=== PATIENT | female | born 1995 | race Caucasian/White ===

== ENCOUNTER → 2016-06-25 | Outpatient (CLI) | payer OTHER ==
[~2016-06-25] MED LIST: ALBUAER2 INH; FERR1TAB13 PO; PRENTAB26 PO
[2016-06-25 12:26] LABS: HEMATOCRIT 31.6 % (37-47)
[2016-06-25 14:13] LABS: URINE APPEARANCE CLOUDY (CLEAR); URINE BILIRUBIN NEG (NEG); URINE COLOR DK YELLOW; URINE EPITHELIAL CELL AUTO >30 /lpf (0-5); URINE NITRITE NEG (NEG); URINE PH 6.5 (4.5-7.5); URINE SPECIFIC GRAVITY 1.024 (1.000-1.030); UROBILINOGEN NEG (NEG)
[2016-06-25 14:17] LABS: MANUAL MICROSCOPIC REQUIRED? NO; REVIEW REQ? NO
== END | disposition home or self-care (01) ==
LOC: C.LAB1850 10:44
PROVIDERS: ATTEND Obstetrics & Gynecology
DX: Z34.83 Encounter for supervision of other normal pregnancy, third trimester (principal)

== ENCOUNTER 2016-06-27 15:27 | Outpatient (CLI) | payer OTHER ==
[~2016-06-27] VITALS: Ht 167.6 cm; Wt 80.0 kg
[~2016-06-27 15:27] MED LIST changes: -FERR1TAB13 PO
[2016-06-27 16:56] VITALS: Ht 167.6 cm; Wt 80.0 kg
== END 2016-06-27 17:14 | disposition home or self-care (01) ==
LOC: EEVIPCON 15:27 → C.OPB 15:27 → C.LD 15:27 → C.OPB 17:14
PROVIDERS: ATTEND Obstetrics & Gynecology
DX: O23.43 Unspecified infection of urinary tract in pregnancy, third trimester (principal); N39.0 Urinary tract infection, site not specified; Z3A.28 28 weeks gestation of pregnancy

== ENCOUNTER → 2016-07-23 | Outpatient (CLI) | payer OTHER ==
[~2016-07-23] MED LIST changes: -ALBUAER2 INH; +FERR1TAB13 PO
== END | disposition home or self-care (01) ==
LOC: C.LABSPEC 13:32
PROVIDERS: ATTEND Obstetrics & Gynecology
DX: N39.0 Urinary tract infection, site not specified (principal)

== ENCOUNTER 2016-08-09 22:55 | Outpatient (CLI) | payer OTHER ==
[~2016-08-09] VITALS: Ht 167.6 cm; Wt 76.0 kg
[~2016-08-09 22:55] MED LIST changes: -FERR1TAB13 PO
[2016-08-09 23:23] VITALS: Ht 167.6 cm; Wt 76.0 kg
--- NOTE | 2016-08-13 08:17 | EDITING REQUIRED CODING QUERY ---
DIAGNOSIS NEEDED To promote full compliance with coding requirements relating to patient care, physician participation is requested in all cases of mattress and foundation sewer uncertainty. Please assist us with the question(s) below: Coding Question: The patient received care in labor and delivery on 08/09/16 as noted within the record. Please document the diagnosis that is being addressed by the medication/treatment. Provider Response: DIAGNOSIS: Leakage of amniotic fluid, suspected Thank you for your assistance, Jannette Rangel - Engine Repairer
== END 2016-08-09 23:38 | disposition home or self-care (01) ==
LOC: C.LD 22:55 → C.OPB 22:55
PROVIDERS: ATTEND Obstetrics & Gynecology
DX: Z34.83 Encounter for supervision of other normal pregnancy, third trimester (principal); Z3A.34 34 weeks gestation of pregnancy

== ENCOUNTER → 2016-08-21 | Outpatient (CLI) | payer OTHER ==
[~2016-08-21] MED LIST changes: +FERR1TAB13 PO
== END | disposition home or self-care (01) ==
LOC: C.LABSPEC 13:29
PROVIDERS: ATTEND Obstetrics & Gynecology
DX: O24.410 Gestational diabetes mellitus in pregnancy, diet controlled (principal)

== ENCOUNTER 2016-08-30 19:14 | Outpatient (CLI) | payer OTHER ==
[~2016-08-30] VITALS: Ht 167.6 cm; Wt 79.0 kg
[~2016-08-30 19:14] MED LIST changes: -FERR1TAB13 PO
[2016-08-30 20:36] VITALS: Ht 167.6 cm; Wt 79.0 kg
--- NOTE | 2016-09-05 12:27 | EDITING REQUIRED CODING QUERY ---
DIAGNOSIS NEEDED To promote full compliance with coding requirements relating to patient care, physician participation is requested in all cases of photographer portrait uncertainty. Please assist us with the question(s) below: Coding Question: The patient received care in labor and delivery on 08/30/16 as noted within the record. Please document the diagnosis that is being addressed by the medication/treatment. Provider Response: DIAGNOSIS: Irregular uterine contractions at term Thank you for your assistance, Jannette Rangel - Fitter Welder
== END 2016-08-30 21:32 | disposition home or self-care (01) ==
LOC: C.OPB 19:14 → C.LD 19:15 → C.OPB 21:32
PROVIDERS: ATTEND Obstetrics & Gynecology
DX: O62.9 Abnormality of forces of labor, unspecified (principal); Z3A.38 38 weeks gestation of pregnancy

== ENCOUNTER 2016-09-02 12:41 | Outpatient (CLI) | payer OTHER | END 2016-09-02 13:30 | disposition home or self-care (01) | LOC: C.LD 12:41 → C.OPB 12:41 | PROVIDERS: ATTEND Obstetrics & Gynecology | DX: O26.893 Other specified pregnancy related conditions, third trimester (principal); O24.410 Gestational diabetes mellitus in pregnancy, diet controlled; R10.9 Unspecified abdominal pain; Z3A.38 38 weeks gestation of pregnancy ==

== ENCOUNTER 2016-09-04 03:36 | Inpatient (IN) | payer OTHER ==
[~2016-09-04] VITALS: Ht 167.6 cm; Wt 80.0 kg
[2016-09-04] MEDS ORDERED: NURSING VERBAL MED ORDER ONE (04:15)
[2016-09-04 04:18] VITALS: Ht 167.6 cm; Wt 80.0 kg
[2016-09-04] MEDS ORDERED: LACTATED RINGER'S 1000ML 1,000 ML IV PRN (04:30)
[2016-09-04] MEDS ORDERED: LACTATED RINGER'S 1000ML 1,000 ML IV SCH (04:30)
[2016-09-04] MEDS ORDERED: EpHEDrine SULFATE INJ 50 MG/ML AMP ONE (04:35)
[2016-09-04] MEDS ORDERED: FENTANYL 2MCG/ML ROPIV 1.25MG/ML 100ML BAG EPI ONE (04:35)
[2016-09-04] MEDS ORDERED: BUPIVACAINE 0.25% 30 ML VIAL ONE (04:35)
[2016-09-04 04:36] LABS: HEMATOCRIT 29.5 % (37-47); MEAN CELL VOLUME 80.4 fL (80-100); MEAN CORPUSCULAR HEMOGLOBIN 25.3 pg (25-34); PLATELET COUNT 142 K/uL (130-400); RED BLOOD COUNT 3.67 M/uL (4.2-5.4); WHITE BLOOD COUNT 10.12 K/uL (4.8-10.8)
[2016-09-04] MEDS ORDERED: FENTANYL CITRATE INJ 50 MCG/1 ML 2 ML VIAL ONE (04:36)
[2016-09-04 04:48] LABS: MEAN CORPUSCULAR HGB CONC 31.5 g/dl (32-36)
[2016-09-04] MEDS ORDERED: LACTATED RINGER'S 1000ML 500 ML IV PRN (05:24)
[2016-09-04] MEDS ORDERED: NALOXONE HCL INJ 1 MG in SODIUM CHLORIDE 0.9% 1000ML 1,000 ML IV PRN (05:24)
[2016-09-04] MEDS ORDERED: DiphenhydrAMINE HCL 50 MG/ML VIAL IV PRN (05:30)
[2016-09-04] MEDS ORDERED: NALOXONE HCL INJ 0.4 MG/1 ML VIAL/CARP IV PRN (05:30)
[2016-09-04] MEDS ORDERED: EpHEDrine SULFATE INJ 50 MG/ML AMP IV PRN (05:30)
[2016-09-04] MEDS ORDERED: NALBUPHINE HCL INJ 10 MG/ML AMP IV PRN (05:30)
[2016-09-04] MEDS ORDERED: ONDANSETRON INJ 2 MG/ML 2 ML VIAL IV PRN (05:30)
[2016-09-04] MEDS: FENTANYL 2MCG/ML ROPIV 1.25MG/ML 100ML BAG EPI PRN ×2 (05:47→07:07)
[2016-09-04] MEDS ORDERED: OXYTOCIN 30 UNITS/500ML NSS IV ONE (08:50)
[2016-09-04] MEDS ORDERED: OXYTOCIN 30 UNITS/500ML NSS IV PRN (09:15)
[2016-09-04] MEDS ORDERED: LANOLIN OINT EXT PRN ×2 (09:15)
[2016-09-04] MEDS ORDERED: DIPHTHERIA/TETANUS/PERTUSSIS 0.5 ML SYR/VIAL IM. ONE (09:15)
[2016-09-04] MEDS ORDERED: OXYCODONE/ACETAMINOPHEN 5-325 TAB PO PRN (09:15)
[2016-09-04] MEDS ORDERED: ACETAMINOPHEN 325 MG TAB PO PRN (09:15)
[2016-09-04] MEDS ORDERED: ACETAMINOPHEN/CODEINE 300/30MG TAB PO PRN ×2 (09:15)
[2016-09-04] MEDS ORDERED: HYDROCORTISONE ACETATE 25 MG SUPP PR PRN (09:15)
[2016-09-04] MEDS ORDERED: BENZOCAINE 20% AER SPR 82.5 GM CAN EXT PRN (09:15)
[2016-09-04] MEDS ORDERED: SUPERCREAM 0.870 % 15GM JAR EXT PRN (09:15)
--- NOTE | 2016-09-04 09:34 | DELIVERY SUMMARY ---
DATE OF OPERATION: 09/04/2016 DATE OF DELIVERY: 09/04/2016. PREOPERATIVE DIAGNOSES: 1. Intrauterine at 38-4/7 weeks. 2. Active labor. POSTOPERATIVE DIAGNOSIS: Same. PROCEDURES: 1. Epidural. 2. Amniotomy. 3. Normal spontaneous vaginal delivery. 4. Right labial laceration with repair. SURGEON: Dr. Pérez. ANESTHESIA: Epidural. ESTIMATED BLOOD LOSS: 300 mL. PROCEDURES: The patient presented to labor and delivery at 4-5 cm and yury every 3 minutes. She underwent an epidural anesthesia and then at 7-8 cm amniotomy. When she was complete and 0 station we pushed for approximately 20 minutes to deliver a viable female in SANJAY presentation. The nose and mouth were bulb suctioned. There was no nuchal cord. The rest of the infant was then delivered without difficulty. The nose and mouth were again bulb suctioned. The infant was placed on the maternal abdomen where the cord was clamped and cut at 1 minute of life. Cord blood and segment were obtained. The placenta was delivered spontaneously intact with a 3-vessel cord. Cervix, sulci and rectum were examined and found to be intact as well as the perineum. A small right labial laceration was repaired with interrupted sutures of 4-0 Vicryl. Hemostasis obtained with dilute Pitocin and fundal massage. Estimated blood loss 300 mL. Apgars 8 and 9. Weight pending. Mother and baby doing well at the end of the delivery. I attest to the content of the Intraoperative Record and any orders documented therein. Any exception s are noted below.
--- NOTE | 2016-09-04 12:50 | Anesthesia Procedure Note ---
Anesthesia Epidural Removal Nt Date & Time Sep 04, 2016 at 12:49 Vital Signs Pain Intensity: 0.0 Notes Mental Status: alert / awake / arousable, participated in evaluation Nausea / Vomiting: adequately controlled Pain: adequately controlled Airway Patency, RR, SpO2: stable & adequate BP & HR: stable & adequate Hydration State: stable & adequate Neuraxial Anesthesia: was administered, sensory block is resolving Anesthetic Complications: no major complications apparent, pt satisfied with anesthetic care Epidural: removed without complications, with tip intact
[2016-09-04] MEDS ORDERED: COUGH DROP (SUGAR FREE) LOZ 24 LOZ/1 BOX ONE (13:08)
[2016-09-04] MEDS: IBUPROFEN 600 MG TAB PO PRN (13:35)
[2016-09-04 13:50] VITALS: BP 121/69; PULSE 83; TEMP 37.2
[2016-09-04 15:00] VITALS: BP 105/67; PULSE 94; TEMP 37; O2SAT 100
[2016-09-04 19:45] VITALS: BP 112/77; PULSE 89; TEMP 36.8
[2016-09-04] MEDS: DOCUSATE SODIUM 100 MG CAP PO SCH (20:00)
[2016-09-04 23:20] VITALS: BP 99/65; PULSE 71; TEMP 36.7
[2016-09-05] MEDS: IBUPROFEN 600 MG TAB PO PRN (02:30)
[2016-09-05 03:35] VITALS: BP 112/75; PULSE 76; TEMP 36.9
--- NOTE | 2016-09-05 06:39 | Progress Note ---
Subjective Sep 05, 2016. Subjective conversation w/ patient, physical exam Ambulation: ambulating normally Voiding: no voiding problems Passing Gas: Yes Diet Tolerance: Regular Diet Lochia: Small Feeding Type: Breast Feeding Pain: Minimal Review of Systems Constitutional: No fever, No chills, No sweats Respiratory: No cough, No shortness of breath Cardiac: No chest pain, No claudication, No palpitations Abdomen: No pain, No nausea, No vomiting Objective Vital Signs Date Time Temp Pulse Resp B/P (MAP) Pulse Ox O2 Delivery O2 Flow Rate FiO2 09/05/16 03:35 36.9 76 18 112/75 (87) Room Air 09/04/16 23:20 Room Air 09/04/16 23:20 36.7 71 16 99/65 (76) Room Air 09/04/16 19:45 36.8 89 18 112/77 (89) Room Air 09/04/16 15:00 Room Air 09/04/16 15:00 37.0 94 16 105/67 (80) 100 Room Air 09/04/16 13:50 37.2 83 20 121/69 (86) Physical Exam General Appearance: WELL-APPEARING, NO APPARENT DISTRESS Respiratory/Chest: lungs clear, no accessory muscle use Cardiovascular: regular rate, rhythm, no murmur Abdomen: normal bowel sounds, soft Fundus: Firm, Non-Tender, Relation to Umbilicus (3 cm below) Extremities: non-tender, no calf tenderness Laboratory Results Last 24 Hours Test 09/05/16 06:15 Assessment and Plan Post- Day#: 1 Continue Routine Care: Resident Physician Supervision Note: I interviewed and examined the patient. Discussed with Dr. Mayberry and agree with findings and plan as documented in the note. Any exceptions or clarifications are listed here: [None] Documented By: Oneida STARR Day 1 Vitals reviewed and stable A+, GBS-, Rubella immune Hgb 9.3 yesterday Patient doing well clinically Encourage ambulation, encourage breast feeding, monitor lochia PATIENT TO BE DISCHARGED TODAY
[2016-09-05 06:41] LABS: HEMATOCRIT 28.9 % (37-47)
[2016-09-05] MEDS ORDERED: FERR1TAB13 PO (06:42)
--- NOTE | 2016-09-05 06:43 | Discharge Instructions ---
Discharge Instructions Date of Service Sep 05, 2016. Admission Reason for Admission: LABOR Discharge Discharge Diagnosis / Problem: Spontaneous Vaginal Delivery Discharge Goals Goal(s): Routine recovery after delivery Medications Continue Dispensed Medications: supercream, dermaplast, tucks, lansinoh Activity Recommendations Activity Limitations: per Instructions/Follow-up section . Instructions / Follow-Up Instructions / Follow-Up ACTIVITY RECOMMENDATIONS: * Gradual return to full activity over the next 2-3 weeks. * No lifting - nothing heavier than baby over the next 2-3 weeks. * Do not engage in vigorous exercise, sexual activity or sports until cleared by your physician. * Do not drive or operate any motorized equipment until cleared by your physician. * You may shower/bathe daily. MEDICATIONS: For discomfort or pain, you may use Acetaminophen (Tylenol), Ibuprofen (Advil), or Naproxen (Aleve) following the package directions. For constipation you may use Colace following the package directions. BREAST CARE: If you are not breast feeding: * Wear a supportive bra 24 hours a day for one to two weeks. * Avoid stimulating your breasts and nipples as much as possible during the first few weeks after delivery. * When taking a shower, have the warm water hit your back, not breasts. * When your breasts feel full, apply ice packs. Usually three to four times a day helps ease the discomfort. * Take a mild pain medication (Tylenol / Motrin) when you are uncomfortable. If breast feeding: * Use breast milk to lubricate nipples. Lansinoh cream may be used for sore nipples. You do not need to remove cream prior to breast feeding. If using a different brand of cream, check the label for directions regarding removal of cream prior to nursing. * Wear a supportive bra. * If having problems with breasts or breast feeding, call a advertising consultant or your health care provider. EPISIOTOMY CARE: After delivery, if you have an episiotomy (stitches), the following steps will ease discomfort and aid healing. * For the first 24 hours after delivery, place ice packs next to your episiotomy to help reduce swelling. * After the first 24 hour-period, sitz baths, either portable or in the tub, are suggested. A shower with a shower arm sprayed over the episiotomy may be comforting. * Za care should be done after each voiding and bowel movement. Squirt warm water from a plastic bottle over the perineum (region of the body between the anus and urinary opening) and pat dry. * Use Dermoplast to ease discomfort. Shake container. [place] directly over the episiotomy. Place a Tucks on a clean sanitary pad next to your episiotomy. SPECIAL CARE INSTRUCTIONS: When you are discharged from the hospital, it is important for you to follow the instructions listed below: * During the first week at home, you should be able to care for yourself and your baby. In addition, the usual light household activities are encouraged. * Limit your activities to the way you feel. Do not try to clean the house or move furniture. Be sensible. * If you actively engage in sports and have done so up until the time of your delivery, you may resume these activities as soon as you feel able. This may take up to one month or even longer. Use good judgment. * Continue to take your vitamins for at least six weeks after the of your baby. * Your diet need not be limited unless you were on a special diet before your delivery. Breast-feeding mothers need around 2500 calories per day and at least 64-80 ounces of fluid per day (8 to 10 glasses). * You should eat foods from the four major food groups. Crash diets or fad diets are to be avoided. Eating lean meats, fresh fruits and vegetables, low-fat dairy products, high fiber foods and a regular exercise program, will help you get back to your pre- weight without putting your health at risk. * Constipation is sometimes a problem after delivery. Take a mild laxative as needed. If breast feeding, Milk of Magnesia is acceptable to use. You may use a suppository or Fleets enema if no episiotomy. * A daily shower or tub bath is suggested. Be sure to thoroughly and gently dry the perineum. * A bloody vaginal discharge will usually continue until around four weeks post . A small amount of bleeding may continue for as long as six weeks. Vaginal discharge changes from the bright red bleeding after delivery to pink then brownish and finally yellowish-pink before becoming white and disappearing. * Bleeding may increase with activity. Your first period may come in 4-8 weeks. If you are breast feeding, your period may be delayed even longer. * [place] (sex) can begin whenever both you and your partner feel comfortable and do not have any form of genital infection. It is recommended that you wait at least six weeks for internal and external healing to occur. If you have questions, please talk to your health care practitioner. A condom should be used to prevent infection and . * Foreplay, gentle intercourse and lubrication is very important the first several times to prevent pain. A water-based lubricant such as K-Y jelly or Astroglide may be used. * If you have RH negative blood and your baby is RH positive, you will receive RHOGAM by injection prior to discharge. The nurse will give you a card to keep with you that has the date and place that you received RHOGAM after delivery. * During your care, you had a Rubella screen done to check for the presence of rubella antibodies in your blood. If your test was negative, you will receive a Rubella vaccine prior to discharge. This vaccine may cause a fever, soreness at the injection site and flu-like symptoms. If these symptoms persist, notify your health care practitioner. is not advised for one month after a Rubella vaccine. * Verbalizes understanding of car seat law as reviewed with patient nursing. * Car Seat hand-out given and reviewed with patient by nursing. * Shaken baby information reviewed with patient by nursing. Call you doctor if: * Heavy bleeding (saturating several pads an hour) or passing clots the size of your fist. * A fever >101 degrees F (38.3 degrees C) on two occasions four hours apart and /or chills. * Unusual pain in the pelvic or vaginal areas. * "Baby Blues" lasting longer than two weeks. If you have any questions or concerns, call your health care practitioner at . FOLLOW UP VISIT: * Please call the office at to schedule a 6 week examination. It is important you keep this appointment. It is important for you to make arrangements for either yearly or twice yearly check-ups thereafter. Current Hospital Diet Patient's current hospital diet: Regular OB Diet Discharge Diet Recommended Diet: Regular Diet Pending Studies Studies pending at discharge: no Medical Emergencies . Who to Call and When: Medical Emergencies: If at any time you feel your situation is an emergency, please call 911 immediately. . Non-Emergent Contact Non-Emergency issues call your: Primary Care Provider, Engine Specialist . . "Provider Documentation" section prepared by French Mayberry. . VTE Core Measure Inpt VTE Proph given/why not?: Treatment not indicated
[2016-09-05 07:30] VITALS: BP 120/80; PULSE 67; TEMP 36.4
[2016-09-05] MEDS ORDERED: PRENATAL VITAMIN TAB PO SCH (08:00)
[2016-09-05] MEDS: DOCUSATE SODIUM 100 MG CAP PO SCH (09:24)
[2016-09-05 09:49] VITALS: BP_DIAS 80; PULSE 67; TEMP 36.4
== END 2016-09-05 13:15 | disposition home or self-care (01) | DRG 775 ==
LOC: C.OPB 03:36 → C.LD 03:41 → C.OPB 04:13 → C.OBG 13:54
PROVIDERS: ADMIT Obstetrics & Gynecology; ATTEND Obstetrics & Gynecology
PROC: 10E0XZZ Delivery of Products of Conception, External Approach (ICD-10-PCS; principal; 2016-09-04)
PROC: 0UQMXZZ Repair Vulva, External Approach (ICD-10-PCS; principal; 2016-09-04)
DX: O24.420 Gestational diabetes mellitus in childbirth, diet controlled (principal); O70.0 First degree perineal laceration during delivery; O99.02 Anemia complicating childbirth; D64.9 Anemia, unspecified; Z37.0 Single live birth; Z3A.38 38 weeks gestation of pregnancy; Z87.891 Personal history of nicotine dependence

== ENCOUNTER 2019-04-19 17:44 | Observation (INO) ==
[2019-04-19] MEDS ORDERED: LACTATED RINGER'S 500 ML IV ONE (18:09)
--- NOTE | 2019-04-19 18:12 | History & Physical Report ---
Date of Service April 19, 2019 Assessment & Plan (1) Complete placenta previa nos or without hemorrhage, unspecified trimester: (2) Gestational diabetes mellitus in , insulin controlled: (3) Encounter for supervision of normal in multigravida, antepartum: I think she is likely yury because she has not hydrated over the past few days. Cervix is not dilated. Will monitor, IV fluids. Plan to recheck. History of Present Illness Chief Complaint: contractions, bleeding Primary Care Provider: NO PCP 23yo @ 32 05/[birth year] presents with complaint of contractions since 10pm last night, vaginal bleeding. She and FOB have also had "stomach bug" and she had nausea/vomiting for the past few days. She only began to be able to tolerate liquids at about 2pm today. Has not really been able to eat solid food. complicated by placenta previa, low platelet count on NEW OB labs (last week 146), GDM on Insulin (last checked BS yesterday). She had contractions last week, received 2 doses of betamethasone on 04/11, 04/12. Allergies Allergy/AdvReac Type Severity Reaction Status Date / Time No Known Drug Allergies Allergy Unknown Verified 04/12/19 12:56 Home Medications Home Medications Medication Instructions Recorded Confirmed Type PNV cmb#95-ferrous fumarate-FA 1 tab PO QAM 03/19/19 04/12/19 History [] ondansetron 4 mg PO TID PRN #14 tab 03/19/19 04/12/19 Rx sertraline [Zoloft] 25 mg PO DAILY 03/19/19 04/12/19 History acetone (urine) test #50 ea 03/21/19 04/12/19 Rx insulin syringe-needle U-100 0.5 #100 ea 03/21/19 04/12/19 Rx mL 31 gauge x 5/16" lancets #102 ea 03/21/19 04/12/19 Rx blood sugar diagnostic #100 ea 04/01/19 04/12/19 Rx insulin NPH isoph U-100 human 22 units SQ QPM 04/07/19 04/12/19 History [Humulin N NPH U-100 Insulin] Patient History Medical History (Updated 04/14/19 @ 16:08 by Dylon Whittington Jr, MD, FACOG) Abdominal pain (Inactive) Abdominal pain (Inactive) Asthma During . Last time using inhaler was 12/2014 Closed head injury (Inactive) Diet controlled gestational diabetes mellitus Encounter for pre-operative examination Evaluate anatomy not seen on prior sonogram Fall (Inactive) Finger contusion (Inactive) Gestational diabetes Headache (Inactive) Migraine (Inactive) (Resolved) S/p on 04/08/2018 (Inactive) Retained products of conception (Inactive) Retained products of conception following Sacral contusion (Inactive) Third trimester (Inactive) UTI (urinary tract infection) (Resolved) Vaginal bleeding (Inactive) Surgical History H/O wisdom tooth extraction History of tonsillectomy and adenoidectomy Social History Preferred Language: Slovak Communication Ability: Effective Visual Impairment: No Limitations Dining Manager Required: No Beliefs That Will Affect Care: None marital status: Current Living Situation: Family Feels Safe at Home: Yes Smoking Status: Former smoker Tobacco Type: cigarettes ; Second Hand Exposure: Yes ; Hx Alcohol Use: No Hx Substance Use: No Review of Systems All systems reviewed & are unremarkable except as noted in HPI & below Physical Exam Physical Exam: Sterile speculum exam: cervix appears visually closed. Small amount of blood tinged mucus, no active bleeding. Gentle digital exam: fingertip dilated, soft, thick, high. FHT: Cat 1 [place] Q 2-3 min Constitutional: WD/WN, vitals as above Respiratory: normal respiratory effort, lungs clear to auscultation no respiratory distress Cardiovascular: Rate/Rhythm: regular rate and regular rhythm Gastrointestinal (Abdomen): Inspection/Auscultation: abdomen normal to inspection Percussion/Palpation: abdomen soft; abdomen nontender Gravid. No s/s chorio or abruption. Skin: no rashes, warm and dry Psychiatric: A+Ox3, euthymic affect Coding Level of Care Code None Diagnoses Complete placenta previa nos or without hemorrhage, unspecified trimester O44.00 Gestational diabetes mellitus in , insulin controlled O24.414 Encounter for supervision of normal in multigravida, antepartum Z34.80
[2019-04-19 19:56] LABS: Basophils # (auto) 0.01 K/uL (0-0.2); Basophils % (auto) 0.1 %; Hematocrit (blood only) 31.1 % (37-47); Hemoglobin 9.8 g/dL (12.0-16.0); Lymphocytes # (auto) 0.64 K/uL (1.2-3.4); Lymphocytes % (auto) 6.6 %; Mean Corpuscular Hemoglobin 23.8 pg (25-34); Mean Corpuscular Volume 75.5 fL (80-100); Mean Platelet Volume 12.1 fL (7.4-10.4); Monocytes % (auto) 4.1 %; Neutrophils # (auto) 8.53 K/uL (1.4-6.5); Neutrophils % (auto) 88.2 %; Platelet Count 152 K/uL (130-400); RDW Coefficient of Variation 15.6 % (11.5-14.5); RDW Standard Deviation 43.2 fL (36.4-46.3); Red Blood Count 4.12 M/uL (4.2-5.4); White Blood Count 9.68 K/uL (4.8-10.8)
[2019-04-19 20:08] LABS: Mean Corpuscular Hgb Conc 31.5 g/dL (32-36)
[2019-04-19 20:13] LABS: Albumin Level 2.1 gm/dl (3.4-5.0); BUN Creatinine Ratio 11.5 (10-20); Calcium 8.1 mg/dl (8.5-10.1); Creatinine Clr Calc Pharmacy 153.3 ml/min; Est GFR (African American) 145.5; Est GFR (Non-African American) 125.5; Potassium 3.5 mmol/L (3.5-5.1)
[2019-04-19 20:16] LABS: Albumin Globulin Ratio 0.5 (0.9-2); Bilirubin,Total 1.2 mg/dl (0.2-1); Total Protein 6.1 gm/dl (6.4-8.2)
[2019-04-19] MEDS ORDERED: TERBUTALINE SULFATE 1 MG/ML VIAL SQ STA (20:41)
[2019-04-19] MEDS ORDERED: TERBUTALINE SULFATE 1 MG/ML VIAL ONE (20:43)
--- NOTE | 2019-04-19 20:48 | Obstetrical Progress Note ---
Date of Service April 19, 2019 Subjective Feels like contractions are stronger. With IV fluid hydration, ctx seem to be spacing out slightly. FHT Cat 1 Cervix exam is the same. No vaginal bleeding. Patient has not yet urinated, and has received 1 litre IV fluids. Will continue IV fluids, encourage her to get up to urinate. Because of patient's discomfort, will give 1 dose SQ terbutaline. Results & Data Vital Signs (Past 12 Hours) Vital Signs Temp Pulse Resp BP 04/19/19 20:06 99 H 110/59 L 04/19/19 19:28 38.7 C H 04/19/19 18:23 36.8 C 117 H 18 97/66 L 04/19/19 18:20 117 H 97/66 L PG Care Time/CCT Total # of Minutes Spent Total Time Spent with Patient: Total time spent is greater than 50% in coordination of care (as documented) at patient's floor/unit and/or counseling patient: Coding Level of Care Code None
[2019-04-19] MEDS: LACTATED RINGER'S 1,000 ML IV PRN ×2 (20:53→21:53)
[2019-04-19 22:58] LABS: Appearance Urine Clear (Clear); Bilirubin Urine Negative (Negative); Blood Urine Negative (Negative); Color Urine Dark Yellow; Glucose Urine UA Negative (Negative); Leukocyte Esterase Urine Negative (Negative); Nitrite Urine Negative (Negative); Protein Urine Negative (Negative); Specific Gravity Urine 1.019 (1.000-1.030); Urobilinogen Urine Negative (Negative); pH Urine 6.5 (4.5-7.5)
[2019-04-19 23:03] LABS: Ketones Urine 3+ (Negative)
[2019-04-20] MEDS: LACTATED RINGER'S 1,000 ML IV PRN ×2 (02:03→06:11)
--- NOTE | 2019-04-20 07:54 | Obstetrical Progress Note ---
Date of Service April 20, 2019 Subjective Patient slept overnight, and is now feeling much better. She is feeling like contractions have resolved. No vaginal bleeding. FHT Cat 1, reactive NST. [place]: rare, not feeling at all. No vaginal bleeding, and not feeling ctx, therefore will not check cervix - she is ok with this plan. Discussed discharge home. She realizes that she felt much better with hydration, and feels like she usually hydrates well, but hadn't over the past few days because of nausea. She had taken some zofran and felt better, and asks for more - will give her Rx for zofran. Followup in office this coming week as scheduled. Discharge to home. Results & Data Vital Signs (Past 12 Hours) Vital Signs Temp Pulse BP Pulse Ox 04/20/19 07:22 94 H 109/58 L 04/20/19 04:22 93 H 115/60 04/20/19 04:20 36.9 C 04/20/19 01:02 37.1 C 107 H 111/58 L 04/19/19 22:30 123 H 97 04/19/19 22:25 116 H 96 04/19/19 22:20 109 H 97 04/19/19 22:15 124 H 96 04/19/19 22:10 116 H 96 04/19/19 22:05 120 H 97 04/19/19 22:00 116 H 96 04/19/19 21:55 37.1 C 119 H 98 04/19/19 21:50 118 H 109/57 L 96 04/19/19 21:45 120 H 107/55 L 96 04/19/19 21:41 116 H 113/57 L 04/19/19 21:40 119 H 96 04/19/19 21:37 117 H 105/54 L 04/19/19 21:35 115 H 96 04/19/19 21:34 125 H 110/53 L 04/19/19 21:30 122 H 97 04/19/19 21:26 117 H 108/56 L 04/19/19 21:25 104 H 97 04/19/19 21:20 133 H 96/55 L 99 04/19/19 21:16 129 H 96/54 L 04/19/19 21:15 124 H 92/56 L 96 04/19/19 21:12 30 L 92 04/19/19 21:09 123 H 98 04/19/19 21:05 134 H 96/60 L 04/19/19 21:04 128 H 97 04/19/19 21:01 125 H 97/60 L 04/19/19 20:59 122 H 98 04/19/19 20:55 115 H 102/62 04/19/19 20:54 94 H 98 04/19/19 20:50 118 H 106/64 04/19/19 20:49 113 H 98 04/19/19 20:06 99 H 110/59 L PG Care Time/CCT Total # of Minutes Spent Total Time Spent with Patient: Total time spent is greater than 50% in coordination of care (as documented) at patient's floor/unit and/or counseling patient: Coding Level of Care Code 91652 Office/Outpt Visit, Est
--- NOTE | 2019-04-20 07:55 | Discharge Summary ---
Date of Service April 20, 2019 Admission HPI Per Admitting Provider 23yo @ 32 [birth year] presents with complaint of contractions since 10pm last night, vaginal bleeding. She and FOB have also had "stomach bug" and she had nausea/vomiting for the past few days. She only began to be able to tolerate liquids at about 2pm today. Has not really been able to eat solid food. complicated by placenta previa, low platelet count on NEW OB labs (last week 146), GDM on Insulin (last checked BS yesterday). She had contractions last week, received 2 doses of betamethasone on 04/11, 04/12. Admission Exam (Per Admitting) Constitutional WD/WN, vitals as above Respiratory normal respiratory effort, lungs clear to auscultation no respiratory distress Cardiovascular Rate/Rhythm: regular rate and regular rhythm Gastrointestinal (Abdomen) Inspection/Auscultation: abdomen normal to inspection Percussion/Palpation: abdomen soft; abdomen nontender Skin no rashes, warm and dry Psychiatric A+Ox3, euthymic affect Hospital Course (1) Complete placenta previa nos or without hemorrhage, unspecified trimester: (2) Gestational diabetes mellitus in , insulin controlled: (3) Encounter for supervision of normal in multigravida, antepartum: I think she is likely yury because she has not hydrated over the past few days. Cervix is not dilated. Will monitor, IV fluids. Plan to recheck. NOTE FROM FOLLOWING AM: Patient slept overnight, and is now feeling much better. She is feeling like contractions have resolved. No vaginal bleeding. FHT Cat 1, reactive NST. [place]: rare, not feeling at all. No vaginal bleeding, and not feeling ctx, therefore will not check cervix - she is ok with this plan. Discussed discharge home. She realizes that she felt much better with hydration, and feels like she usually hydrates well, but hadn't over the past few days because of nausea. She had taken some zofran and felt better, and asks for more - will give her Rx for zofran. Followup in office this coming week as scheduled. Coding Level of Care Code None Diagnoses Complete placenta previa nos or without hemorrhage, unspecified trimester O44.00 Gestational diabetes mellitus in , insulin controlled O24.414 Encounter for supervision of normal in multigravida, antepartum Z34.80
== END 2019-04-20 08:20 | disposition home or self-care (01) ==
LOC: OPB 17:44 → 4S1 17:44

== ENCOUNTER 2021-08-25 17:44 | Observation (INO) ==
[2021-08-25] MEDS ORDERED: SODIUM CHLORIDE 0.9% 1000ML 1,000 ML IV STA (18:09)
--- NOTE | 2021-08-25 18:27 | Emergency Department Note ---
History of Present Illness General Chief complaint: Abdominal Pain Stated complaint: GALLSTONE PAIN Time Seen by Provider: 08/25/21 18:04 History of Present Illness Maximum Pain Intensity: 6 This is a 25-year-old female who presents with right upper quadrant pain, nausea, vomiting, diarrhea, anorexia for the past 3 days. It continues to worsen. She was seen at an urgent care 3 days ago and diagnosed with a 1.1 cm gallstone with no gallbladder wall thickening per ultrasound. Her abdominal pain is constant and exacerbated when she eats or changes position. She also notes some right sided back pain. She continues to vomit and her pain has continued to worsen and she does not want to eat anything. When she tried to eat dinner last night she put a little bit of cheese on her food and "nearly ." She developed chills last night. She has not had any fevers. She has been trying to drink plenty of fluids, endorses urinary frequency but denies any dysuria or hematuria She denies any sinus congestion, sore throat, cough, chest pain, shortness of breath, blood in her stool. She is sexually active, takes control. Had a negative test 3 days ago. Home Medications Medication Instructions Recorded Confirmed Type [id number] 250 2 tab PO Q6H PRN 10/26/20 08/25/21 History mg-250 mg-65 mg tablet (Excedrin Migraine) escitalopram oxalate 10 mg tablet 10 mg PO DAILY 02/19/21 08/25/21 History (Lexapro) norethindrone 1.5 mg-ethinyl 1 tab PO DAILY #84 tab 04/30/21 08/25/21 Rx estradiol 30 mcg(21)/iron 75 mg(7) tablet (Loestrin Fe 1.5/30 (28-Day)) ketoconazole 2 % shampoo 1 applic TOPICAL .COMPLEX #120 ml 05/02/21 08/25/21 Rx naltrexone 50 mg tablet 25 mg PO DAILY #30 tab 08/13/21 08/25/21 Rx bupropion HCl 150 mg 24 hr tablet, 75 mg PO BID 08/25/21 08/25/21 History extended release Allergies Allergy/AdvReac Type Severity Reaction Status Date / Time No Known Allergies Allergy Verified 08/25/21 18:14 Past Med/Surg History Medical History (Updated 08/25/21 @ 21:19 by SAMUEL Lamas) Anemia Asthma During . Last time using inhaler was 12/2014 Cholelithiasis Complete placenta previa nos or without hemorrhage, unspecified trimester HX Depression Early intrauterine Fatigue Hx gestational diabetes Required insulin Hx of 04/2018; had D&E Hx of diplopia Now corrected with appropriate corrective lenses. Lactase deficiency [place]-Schlatter's disease Surgical History H/O wisdom tooth extraction 2017 History of section History of D&C For retained products of conception after medical Ab 04/2018 History of knee surgery History of tonsillectomy and adenoidectomy age 4 Family History Mother Thyroid condition Asthma Father Allergies Hypertension Grandfather Family history of colon cancer Grandmother Family history of diabetes mellitus Other Family history non-contributory Social History Smoking Status: Never smoker Age Started Using Tobacco: 16; packs per day: 0.5; Years Smoked: 8; Cigarettes Per Day: .5PPD/ADVISED NPO; Second Hand Exposure: Yes; Hx Alcohol Use: No Hx Substance Use: No Preferred Language: Y[place]ut Communication Ability: Effective Visual Impairment: No Limitations Hearing Ability: Normal Medical Practitioners Required: No Beliefs That Will Affect Care: None marital status: Current Living Situation: Spouse and Family current occupational status: employed and student current occupation: Nurses Aid How many Children do You have: 3 Feels Safe at Home: Yes Childhood Exposure to Second-Hand Smoke: Yes caffeine: No during the past year weight has: remained stable Dental Care, Regularly: Yes Physical Activity Frequency: Daily Seatbelt Use: always Sunscreen Use: Yes Assistive Devices: Glasses Review of Systems See HPI for pertinent positives & negatives. and A total of 10 systems reviewed and were otherwise negative Physical Exam Vital Signs Vital Signs - 24 hr 08/25/21 17:44 08/25/21 18:24 08/25/21 19:44 Temperature 97.7 F Temperature Source Temporal Artery Scan Pulse Rate 78 Pulse Rate [Apical] 71 Respiratory Rate 20 16 Respiratory Effort / Characteristics Non-Labored Non-Labored Respiratory Depth Normal Normal Blood Pressure 127/84 Blood Pressure [Left Arm] 122/78 Blood Pressure Mean 98 Blood Pressure Mean [Left Arm] 92 Pulse Oximetry 98 98 98 Oxygen Delivery Method Room Air Room Air Room Air Sepsis Recent Fever Within 48 Hours No Sepsis New/Unexplained Change in Mental Status No Sepsis Action Taken by Nursing No Action Required CONSTITUTIONAL: Well developed, well nourished, in no acute distress. HEAD: Normocephalic, atraumatic. EYES: conjunctivae normal, extraocular muscles intact. ENMT: External ears normal. Nose with normal external appearance, no congestion. Oral mucous membranes slightly dry. Oropharynx normal. NECK: Full active range of motion. RESPIRATORY: Breathing unlabored and symmetric. Lungs clear to auscultation bilaterally. No wheeze, rales, or rhonchi. CARDIOVASCULAR: Regular rate and rhythm. No murmurs, rubs, or gallops. ABDOMEN: Normal bowel sounds. Abdomen is soft. There is right upper quadrant tenderness with a positive Rudolph sign. No peritonitis. Right CVA tenderness. MUSCULOSKELETAL: Moves all extremities at all joints without pain or difficulty. No cyanosis or edema. Back with full range of motion. SKIN: [place], warm, dry. No rash. NEUROLOGIC: Alert and oriented x 3. No acute motor or sensory deficits. Cranial nerves grossly intact. PSYCHIATRIC: Appropriate. Normal affect. Course Reevaluation(s) Reevaluation #1: Reevaluated patient at bedside and discussed labs and imaging findings. Her pain is 4 out of 10. She is resting comfortably and has not had any additional vomiting. Time: 20:22 Consultations Consultation #1: Spoke with Satinder Dominguez PA-C (general surgery) regarding the patient's presentation, labs, and imaging findings. He will be down to see the patient at bedside Time: 20:22 Administered Medications Discontinued Medications Acetaminophen (Acetaminophen 325 Mg Tab) 650 mg PO NOW STA Stop: 08/25/21 18:30 Last Admin: 08/25/21 18:34 Dose: 650 mg Documented by: [id number] Sodium Chloride (Nss 1000ml) 1,000 mls @ 999 mls/hr IV .Q1H1M STA Stop: 08/25/21 19:09 Last Infusion: 08/25/21 19:35 Dose: 0 mls/hr Documented by: [id number] Admin: 08/25/21 18:34 Dose: 999 mls/hr Documented by: [id number] Ioversol (Optiray 320 100ml) 94 ml IV ONCE ONE Stop: 08/25/21 19:39 Last Admin: 08/25/21 19:39 Dose: 94 ml Documented by: [id number] Ondansetron HCl (Ondansetron Inj 2 Mg/Ml 2 Ml Vial) 4 mg IV NOW STA Stop: 08/25/21 18:30 Last Admin: 08/25/21 18:34 Dose: 4 mg Documented by: [id number] Medical Decision Making Differential Diagnosis Hepatobiliary dysfunction, renal colic, appendicitis, diverticulitis, intra- abdominal pathology, pyelonephritis, pneumonia, UTI, musculoskeletal, shingles prodrome, viral infection, among other pathology Medical Records Attestation: I reviewed the patient's medical records. Laboratory Data Result diagrams: 08/25/21 18:00 08/25/21 18:00 Lab Results 08/25/21 08/25/21 08/25/21 Range/Units 18:00 18:00 19:29 WBC 6.04 (4.8-10.8) K/uL RBC 4.62 (4.2-5.4) M/uL Hgb 14.2 (12.0-16.0) g/dL Hct 41.7 (37-47) % MCV 90.3 (80-100) fL MCH 30.7 (25-34) pg MCHC 34.1 (32-36) g/dL RDW Std Deviation 44.4 (36.4-46.3) fL RDW Coeff of Leandro 13.5 (11.5-14.5) % Plt Count 171 (130-400) K/uL MPV 12.4 H (7.4-10.4) fL Immature Gran % (Auto) 0.2 % Neut % (Auto) 46.6 % Lymph % (Auto) 39.7 % [place] % (Auto) 6.3 % Eos % (Auto) 6.5 % Baso % (Auto) 0.7 % Neut # (Auto) 2.82 (1.4-6.5) K/uL Lymph # (Auto) 2.40 (1.2-3.4) K/uL [place] # (Auto) 0.38 (0.11-0.59) K/uL Eos # (Auto) 0.39 (0-0.5) K/uL Baso # (Auto) 0.04 (0-0.2) K/uL Immature Gran # (Auto) 0.01 (0.00-0.02) K/uL Sodium 136 (136-145) mmol/L Potassium 3.9 (3.5-5.1) mmol/L Chloride 102 (98-107) mmol/L Carbon Dioxide 26 (21-32) mmol/L Anion Gap 8 (3-11) BUN 16 (6-23) mg/dl Creatinine 0.94 (0.6-1.2) mg/dl Est Cr Clr Drug Dosing 95.5 ml/min Est GFR ( Amer) 97.0 ml/min Est GFR (Non-Af Amer) 83.7 ml/min BUN/Creatinine Ratio 17.0 (10-20) Glucose 101 H (70-99(Fasting)) mg/dl Calcium 9.5 (8.5-10.1) mg/dl Total Bilirubin 0.5 (0.2-1.0) mg/dl AST 14 (13-39) U/L ALT 15 (7-52) U/L Alkaline Phosphatase 38 (34-104) U/L Total Protein 7.4 (6.0-8.3) gm/dl Albumin 4.5 (3.4-5.0) gm/dl Globulin 2.9 (2.5-4.0) gm/dl Albumin/Globulin Ratio 1.6 (0.9-2) Lipase 30 (11-82) U/L Urine Color Urine Appearance (Clear) Urine pH (4.5-7.5) Ur Specific [place] (1.000-1.030) Urine Protein (Negative) Urine Glucose (UA) (Negative) Urine Ketones (Negative) Urine Blood (Negative) Urine Nitrite (Negative) Urine Bilirubin (Negative) Urine Urobilinogen (Negative) Ur Leukocyte Esterase (Negative) POC Ur Test (NEG) SARS-CoV-2, RNA, NAAT NEGATIVE (NEGATIVE) 08/25/21 08/25/21 Range/Units 19:29 19:36 WBC (4.8-10.8) K/uL RBC (4.2-5.4) M/uL Hgb (12.0-16.0) g/dL Hct (37-47) % MCV (80-100) fL MCH (25-34) pg MCHC (32-36) g/dL RDW Std Deviation (36.4-46.3) fL RDW Coeff of Leandro (11.5-14.5) % Plt Count (130-400) K/uL MPV (7.4-10.4) fL Immature Gran % (Auto) % Neut % (Auto) % Lymph % (Auto) % [place] % (Auto) % Eos % (Auto) % Baso % (Auto) % Neut # (Auto) (1.4-6.5) K/uL Lymph # (Auto) (1.2-3.4) K/uL [place] # (Auto) (0.11-0.59) K/uL Eos # (Auto) (0-0.5) K/uL Baso # (Auto) (0-0.2) K/uL Immature Gran # (Auto) (0.00-0.02) K/uL Sodium (136-145) mmol/L Potassium (3.5-5.1) mmol/L Chloride (98-107) mmol/L Carbon Dioxide (21-32) mmol/L Anion Gap (3-11) BUN (6-23) mg/dl Creatinine (0.6-1.2) mg/dl Est Cr Clr Drug Dosing ml/min Est GFR ( Amer) ml/min Est GFR (Non-Af Amer) ml/min BUN/Creatinine Ratio (10-20) Glucose (70-99(Fasting)) mg/dl Calcium (8.5-10.1) mg/dl Total Bilirubin (0.2-1.0) mg/dl AST (13-39) U/L ALT (7-52) U/L Alkaline Phosphatase (34-104) U/L Total Protein (6.0-8.3) gm/dl Albumin (3.4-5.0) gm/dl Globulin (2.5-4.0) gm/dl Albumin/Globulin Ratio (0.9-2) Lipase (11-82) U/L Urine Color Yellow Urine Appearance Clear (Clear) Urine pH 6.0 (4.5-7.5) Ur Specific [place] 1.023 (1.000-1.030) Urine Protein Negative (Negative) Urine Glucose (UA) Negative (Negative) Urine Ketones Trace H (Negative) Urine Blood Negative (Negative) Urine Nitrite Negative (Negative) Urine Bilirubin Negative (Negative) Urine Urobilinogen Negative (Negative) Ur Leukocyte Esterase Negative (Negative) POC Ur Test NEG (NEG) SARS-CoV-2, RNA, NAAT (NEGATIVE) Imaging Data Radiologist's Impression: Abdomen/Pelvis CT 08/25/21 18:21 CT SCAN OF THE ABDOMEN AND PELVIS WITH IV CONTRAST CLINICAL HISTORY: Right upper quadrant abdominal pain. Vomiting. COMPARISON STUDY: Abdominal ultrasound dated 08/23/2021. TECHNIQUE: Following the IV administration of 94 cc of Optiray 320, CT scan of the abdomen and pelvis is performed from the lung bases to the proximal femora. Images are reviewed in the axial, sagittal, and coronal planes. IV contrast was administered without complication. A dose lowering technique was utilized adhering to the principles of ALARA. CT DOSE: 360.17 mGy.cm FINDINGS: Lung bases: The heart is normal in size and without pericardial effusion. The lung bases are clear noting right basilar atelectasis. Liver: The contrast-enhanced liver is enlarged, measuring 21.1 cm in length. The liver is otherwise normal in contour and attenuation. There is no intrahepatic biliary ductal dilatation. The hepatic veins and portal veins are patent. Gallbladder: Contracted. Spleen: The spleen is mildly enlarged measuring 13.5 cm in length. Pancreas: Unremarkable. Adrenal glands: Unremarkable. Kidneys: The contrast enhanced kidneys are normal in size and without hydronephrosis. The kidneys enhance symmetrically. A subcentimeter cortical hypodensity in the right kidney likely resents a cyst but is too small for definitive characterization. Abdominal vasculature: The abdominal aorta is normal in course and caliber. Bowel: There is mild colonic fecal retention. No bowel obstruction is identified. The appendix is well-visualized and normal. Peritoneum: There is no intraperitoneal free air or abdominal ascites. There is a fat-containing umbilical hernia. Lymphadenopathy: None. Pelvic viscera: The bladder is decompressed and not well evaluated. The uterus and adnexa are normal as visualized noting bilateral ovarian follicles. A small volume of free fluid is noted in the cul-de-sac. Skeletal structures: No lytic or blastic lesions are seen. IMPRESSION: 1. No acute infectious or inflammatory findings are identified in the abdomen or pelvis. 2. Mild hepatosplenomegaly. 3. The gallbladder is contracted. 4. Normal appendix. 5. Free fluid in the cul-de-sac is nonspecific and likely within physiologic limits. ACT 112: Negative or not required by law. Electronically signed by: Xavi Mo M.D. 08/25/2021 7:53 PM MDM Narrative 25-year-old female presents with ongoing and worsening right upper quadrant abdominal pain, vomiting, diarrhea. Her vitals are stable, afebrile. Not actively vomiting although reports ongoing nausea. Exam demonstrates right upper quadrant tenderness with a positive Rudolph sign and right CVA tenderness. Mucous membranes slightly dry. She was given Tylenol for her pain as she declined anything else, as well as Zofran IV for nausea. She received IV fluids. Labs were obtained and are overall reassuring. No leukocytosis or anemia. Renal function is normal. No electrolyte disturbance. Urinalysis demonstrates trace ketones, otherwise no evidence of infection or blood. Urine is negative. CT abdomen pelvis was obtained to evaluate for progression of known cholelithiasis, or other intra-abdominal pathology. This is an essentially unremarkable study as described above. I suspect patient is symptomatic from the known gallstone. I consulted with Satinder Dominguez PA-C general surgery regarding the case and he evaluated her at bedside. Patient will be admitted overnight and will have a cholecystectomy tomorrow. Impression & Plan Biliary colic, Abdominal pain, right upper quadrant, Nausea vomiting and diarrhea Discharge Plan Visit Data Chief Complaint: Abdominal Pain Stated Complaint: GALLSTONE PAIN ED Provider: [place] [facility] Midlevel Provider: Kirit Wheeler Discharge Problem: Biliary colic, Abdominal pain, right upper quadrant, Nausea vomiting and diarrhea Patient Disposition: Admitted As Inpatient Condition: Good Forms Stand Alone Forms: My [facility] Prescriptions Prescriptions: No Action norethindrone-e.estradiol-iron [Loestrin Fe 1.5/30 (28-Day)] 1.5 mg-30 mcg (21)/75 mg (7) tablet 1 tab PO DAILY Qty: 84 RF: 3 ketoconazole 2 % shampoo 1 applic topical .COMPLEX Qty: 120 RF: 4 naltrexone 50 mg tablet 25 mg PO DAILY Qty: 30 RF: 0 escitalopram oxalate [Lexapro] 10 mg tablet 10 mg PO DAILY RF: 0 Excedrin Migraine 250-250-65 mg Tablet 2 tab PO Q6H PRN (Reason: Pain) RF: 0 bupropion HCl 150 mg tablet extended release 24 hr 75 mg PO BID RF: 0 Referrals Referrals: Alessandro Jerez III, CRNP [Primary Care Provider] -
[2021-08-25] MEDS ORDERED: ACETAMINOPHEN 325 MG TAB PO STA (18:29)
[2021-08-25] MEDS ORDERED: ONDANSETRON INJ 2 MG/ML 2 ML VIAL IV STA (18:29)
[2021-08-25 18:59] LABS: Basophils # (auto) 0.04 K/uL (0-0.2); Basophils % (auto) 0.7 %; Eosinophils # (auto) 0.39 K/uL (0-0.5); Eosinophils % (auto) 6.5 %; Hematocrit (blood only) 41.7 % (37-47); Hemoglobin 14.2 g/dL (12.0-16.0); Immature Granulocytes # (auto) 0.01 K/uL (0.00-0.02); Immature Granulocytes % (auto) 0.2 %; Lymphocytes % (auto) 39.7 %; Mean Corpuscular Hemoglobin 30.7 pg (25-34); Mean Corpuscular Hgb Conc 34.1 g/dL (32-36); Mean Corpuscular Volume 90.3 fL (80-100); Mean Platelet Volume 12.4 fL (7.4-10.4); Monocytes # (auto) 0.38 K/uL (0.11-0.59); Monocytes % (auto) 6.3 %; Neutrophils # (auto) 2.82 K/uL (1.4-6.5); Neutrophils % (auto) 46.6 %; Platelet Count 171 K/uL (130-400); RDW Coefficient of Variation 13.5 % (11.5-14.5); RDW Standard Deviation 44.4 fL (36.4-46.3); Red Blood Count 4.62 M/uL (4.2-5.4); White Blood Count 6.04 K/uL (4.8-10.8)
[2021-08-25 19:10] LABS: Albumin Globulin Ratio 1.6 (0.9-2); Albumin Level 4.5 gm/dl (3.4-5.0); Bilirubin,Total 0.5 mg/dl (0.2-1.0); Calcium 9.5 mg/dl (8.5-10.1); Creatinine Clr Calc Pharmacy 95.5 ml/min; Est GFR (Non-African American) 83.7 ml/min; Globulin 2.9 gm/dl (2.5-4.0); Potassium 3.9 mmol/L (3.5-5.1); Total Protein 7.4 gm/dl (6.0-8.3)
[2021-08-25] MEDS ORDERED: OPTIRAY 320 100ml IV ONE (19:38)
[2021-08-25 19:48] LABS: Appearance Urine Clear (Clear); Bilirubin Urine Negative (Negative); Blood Urine Negative (Negative); Color Urine Yellow; Glucose Urine UA Negative (Negative); Ketones Urine Trace (Negative); Leukocyte Esterase Urine Negative (Negative); Nitrite Urine Negative (Negative); Protein Urine Negative (Negative); Specific Gravity Urine 1.023 (1.000-1.030); Urobilinogen Urine Negative (Negative)
--- NOTE | 2021-08-25 19:55 | CT Scan Report ---
CT SCAN OF THE ABDOMEN AND PELVIS WITH IV CONTRAST CLINICAL HISTORY: Right upper quadrant abdominal pain. Vomiting. COMPARISON STUDY: Abdominal ultrasound dated 08/23/2021. TECHNIQUE: Following the IV administration of 94 cc of Optiray 320, CT scan of the abdomen and pelvi s is performed from the lung bases to the proximal femora. Images are reviewed in the axial, sagittal , and coronal planes. IV contrast was administered without complication. A dose lowering technique wa s utilized adhering to the principles of ALARA. CT DOSE: 360.17 mGy.cm FINDINGS: Lung bases: The heart is normal in size and without pericardial effusion. The lung bases are clear no ting right basilar atelectasis. Liver: The contrast-enhanced liver is enlarged, measuring 21.1 cm in length. The liver is otherwise n ormal in contour and attenuation. There is no intrahepatic biliary ductal dilatation. The hepatic vei ns and portal veins are patent. Gallbladder: Contracted. Spleen: The spleen is mildly enlarged measuring 13.5 cm in length. Pancreas: Unremarkable. Adrenal glands: Unremarkable. Kidneys: The contrast enhanced kidneys are normal in size and without hydronephrosis. The kidneys enh ance symmetrically. A subcentimeter cortical hypodensity in the right kidney likely resents a cyst bu t is too small for definitive characterization. Abdominal vasculature: The abdominal aorta is normal in course and caliber. Bowel: There is mild colonic fecal retention. No bowel obstruction is identified. The appendix is we ll-visualized and normal. Peritoneum: There is no intraperitoneal free air or abdominal ascites. There is a fat-containing umbi lical hernia. Lymphadenopathy: None. Pelvic viscera: The bladder is decompressed and not well evaluated. The uterus and adnexa are normal as visualized noting bilateral ovarian follicles. A small volume of free fluid is noted in the cul-de -sac. Skeletal structures: No lytic or blastic lesions are seen. IMPRESSION: 1. No acute infectious or inflammatory findings are identified in the abdomen or pelvis. 2. Mild hepatosplenomegaly. 3. The gallbladder is contracted. 4. Normal appendix. 5. Free fluid in the cul-de-sac is nonspecific and likely within physiologic limits. ACT 112: Negative or not required by law. Electronically signed by: Xavi Mo M.D. 08/25/2021 7:53 PM
--- NOTE | 2021-08-25 21:01 | History & Physical Report ---
Date of Service August 25, 2021 Assessment & Plan (1) Cholelithiasis: Plan: I suspect the patient is having biliary colic related to her cholelithiasis. As the patient has had 2 episodes of such pain within the past week we will admit her to the hospital and proceed as follows: Patient will be allowed clear liquids up until midnight tonight, at which point she will be made n.p.o. Analgesia will be provided Antiemetics be provided We will hydrate her with IV fluids We will initiate antibiotics in the form of cefoxitin We will repeat labs in the morning including a CBC, CMP, and lipase I feel the patient would likely benefit from a cholecystectomy. We have tentatively scheduled her for a laparoscopic, possible open cholecystectomy with Dr. Jacobo on 08/26/2021. I discussed the risks, benefits, and alternatives with the patient, as well as discussed the expected postoperative recovery with her and she wishes to proceed. Additional recommendations be forthcoming based on her operative findings as well as postoperative recovery We will utilize SCDs for DVT prevention, we will avoid chemical means due to planned surgery She will be a level 1 full code History of Present Illness Chief Complaint: Abdominal pain Primary Care Provider: Alessandro Jerez III, TOI This is a 25-year-old female who presented to [facility] emergency department secondary to abdominal pain. Patient notes that her abdominal pain originally began 2 to 3 days ago. She said that she developed nausea and vomiting as well as diarrhea and right upper quadrant abdominal pain was sudden onset. She notes that her pain was unrelated to meals. She denied any fevers, shakes, or chills. She has never experienced abdominal pain like this before. I did question her on postprandial pain over the past several weeks to months which she denied. Because of her symptomatology she initially presented to an outpatient urgent care center and ultimately did undergo an ultrasound of her gallbladder on 08/23/2021. Her abdominal ultrasound was performed at an outpatient [facility] center. The study showed that patient had no gallbladder wall thickening or other evidence of cholecystitis, however she was noted to have a 1.1 cm gallstone. Patient notes that following this ultrasound she was instructed to follow-up with gastroenterology which was scheduled for later this month. The patient had return of her symptoms which prompted a visit to the emergency department this evening. Again the patient noted sudden onset of nausea and vomiting along with diarrhea. She denies any hematemesis, melena, or bright red blood per rectum. She denied any fevers, shakes, or chills. She said that the pain was unrelated to meals and she did not note any provocative factors and noted that the pain merely came on suddenly. She said that the pain was improved with medications that were administered in the emergency department and she also noted some relief after having emesis. It is nowhere the mention that the patient has had abdominal surgery in the form of a approximately 2 years ago. She notes that she has had very little in the way of oral intake today due to her symptoms. Today in the emergency department the patient had labs and imaging which I independently reviewed. A CT scan of the abdomen and pelvis was performed that showed no acute infectious or inflammatory findings noted. Her gallbladder did appear contracted on this study. Labs performed today included a CBC her white blood cell count, hemoglobin, hematocrit, platelet count were all normal. She did have a chemistry profile that showed sodium, potassium, BUN, and creatinine were all normal. LFTs were performed that showed no evidence of elevation of her bilirubin, transaminases, alkaline phosphatase, or lipase. A test was noted be negative. Urinalysis was not indicative of infection. A COVID test was noted to be negative. At the time of my interview the patient was resting comfortably in bed and she was in no distress but did have some residual right upper quadrant pain. Allergies Allergy/AdvReac Type Severity Reaction Status Date / Time No Known Allergies Allergy Verified 08/25/21 18:14 Home Medications Medication Instructions Recorded Confirmed Type [id number]-[id number]-tdhppyvq 250 2 tab PO Q6H PRN 10/26/20 08/25/21 History mg-250 mg-65 mg tablet (Excedrin Migraine) escitalopram oxalate 10 mg tablet 10 mg PO DAILY 02/19/21 08/25/21 History (Lexapro) norethindrone 1.5 mg-ethinyl 1 tab PO DAILY #84 tab 04/30/21 08/25/21 Rx estradiol 30 mcg(21)/iron 75 mg(7) tablet (Loestrin Fe 1.5/30 (28-Day)) ketoconazole 2 % shampoo 1 applic TOPICAL .COMPLEX #120 ml 05/02/21 08/25/21 Rx naltrexone 50 mg tablet 25 mg PO DAILY #30 tab 08/13/21 08/25/21 Rx bupropion HCl 75 mg tablet 75 mg PO BID 08/25/21 08/25/21 History Past Med/Surg History Medical History (Updated 08/25/21 @ 21:19 by SAMUEL Lamas) Anemia Asthma During . Last time using inhaler was 12/2014 Cholelithiasis Complete placenta previa nos or without hemorrhage, unspecified trimester HX Depression Early intrauterine Fatigue Hx gestational diabetes Required insulin Hx of 04/2018; had D&E Hx of diplopia Now corrected with appropriate corrective lenses. Lactase deficiency [place]-Schlatter's disease Surgical History H/O wisdom tooth extraction 2017 History of section History of D&C For retained products of conception after medical Ab 04/2018 History of knee surgery History of tonsillectomy and adenoidectomy age 4 Family History Mother Thyroid condition Asthma Father Allergies Hypertension Grandfather Family history of colon cancer Grandmother Family history of diabetes mellitus Other Family history non-contributory Social History Smoking Status: Never smoker Age Started Using Tobacco: 16; packs per day: 0.5; Years Smoked: 8; Cigarettes Per Day: .5PPD/ADVISED NPO; Second Hand Exposure: Yes; Hx Alcohol Use: No Hx Substance Use: No Preferred Language: Indonesian Communication Ability: Effective Visual Impairment: No Limitations Hearing Ability: Normal Pattern Fitter Required: No Beliefs That Will Affect Care: None marital status: Current Living Situation: Spouse and Family current occupational status: employed and student current occupation: Nurses Aid How many Children do You have: 3 Feels Safe at Home: Yes Childhood Exposure to Second-Hand Smoke: Yes caffeine: No during the past year weight has: remained stable Dental Care, Regularly: Yes Physical Activity Frequency: Daily Seatbelt Use: always Sunscreen Use: Yes Assistive Devices: Glasses Review of Systems Constitutional: no fever and no chills Eyes: + corrective lenses Ear, Nose, Mouth, Throat: no ear pain and no hearing loss Respiratory: no cough and no dyspnea Cardiovascular: no chest pain Gastrointestinal: as per Subjective / HPI, + abdominal pain, + nausea and + vomiting Genitourinary: no dysuria Musculoskeletal: no back pain Integumentary: no rash Neurologic: no localized weakness Physical Exam Constitutional: WD/WN, vitals as above Eyes: + anicteric sclerae Wears glasses ENMT: Ears: no hearing impairment and no external ear abnormality Mouth: no oropharynx abnormality No sublingual jaundice Neck: trachea midline Respiratory: normal respiratory effort, lungs clear to auscultation Cardiovascular: Rate/Rhythm: regular rate and regular rhythm Gastrointestinal (Abdomen): Abdomen is soft, nonrigid, and nondistended. There is no rebound tenderness or guarding. The patient did have pain with deep palpation in the right upper quadrant. Musculoskeletal: No calf tenderness Skin: no rashes and no jaundice Neurologic: moves all extremities Psychiatric: A+Ox3, euthymic affect Results & Data Results & Data ([facility]) Vital Signs (Past 12 Hours) Vital Signs Temp Pulse Pulse Resp BP BP Pulse Ox 08/25/21 19:44 71 16 122/78 98 08/25/21 18:24 98 08/25/21 17:44 36.5 C 78 20 127/84 98 Supervising Physician Co-Signing Physician Notes pnt d/w Satinder Dominguez, labs and imaging reviewed. Likely intractable biliary colic from cholelithiasis. Will admit, plan for lap cholecystectomy tomorrow. PG Care Time/CCT Total # of Minutes Spent Total Time Spent with Patient: Total time spent is greater than 50% in coordination of care (as documented) at patient's floor/unit and/or counseling patient: Coding Level of Care Code INT OBSERVATION CARE 70M LVL 3 Diagnoses Cholelithiasis K80.20
[2021-08-25] MEDS ORDERED: ACETAMINOPHEN 1,000 MG/100 ML VIAL IV PRN (21:09)
[2021-08-25] MEDS: cefOXitin 2,000 MG in DEXTROSE 5% 50 ML IV SCH (21:31)
[2021-08-25] MEDS: LACTATED RINGER'S 1,000 ML IV SCH (22:03)
[2021-08-25] MEDS ORDERED: ONDANSETRON INJ 2 MG/ML 2 ML VIAL IV PRN (22:41)
[2021-08-26] MEDS: cefOXitin 2,000 MG in DEXTROSE 5% 50 ML IV SCH ×3 (05:34→16:04)
[2021-08-26 06:29] LABS: Basophils # (auto) 0.03 K/uL (0-0.2); Basophils % (auto) 0.6 %; Eosinophils # (auto) 0.44 K/uL (0-0.5); Eosinophils % (auto) 8.7 %; Hematocrit (blood only) 38.3 % (37-47); Hemoglobin 13.1 g/dL (12.0-16.0); Immature Granulocytes # (auto) 0.01 K/uL (0.00-0.02); Immature Granulocytes % (auto) 0.2 %; Lymphocytes # (auto) 2.25 K/uL (1.2-3.4); Lymphocytes % (auto) 44.5 %; Mean Corpuscular Hemoglobin 30.5 pg (25-34); Mean Corpuscular Hgb Conc 34.2 g/dL (32-36); Mean Corpuscular Volume 89.3 fL (80-100); Mean Platelet Volume 11.5 fL (7.4-10.4); Monocytes # (auto) 0.44 K/uL (0.11-0.59); Monocytes % (auto) 8.7 %; Neutrophils # (auto) 1.89 K/uL (1.4-6.5); Neutrophils % (auto) 37.3 %; Platelet Count 146 K/uL (130-400); RDW Coefficient of Variation 13.4 % (11.5-14.5); RDW Standard Deviation 43.7 fL (36.4-46.3); Red Blood Count 4.29 M/uL (4.2-5.4); White Blood Count 5.06 K/uL (4.8-10.8)
[2021-08-26 06:51] LABS: Albumin Globulin Ratio 1.5 (0.9-2); Albumin Level 3.7 gm/dl (3.4-5.0); Bilirubin,Total 0.7 mg/dl (0.2-1.0); Calcium 8.5 mg/dl (8.5-10.1); Creatinine Clr Calc Pharmacy 105.6 ml/min; Est GFR (African American) 108.1 ml/min; Est GFR (Non-African American) 93.2 ml/min; Globulin 2.5 gm/dl (2.5-4.0); Potassium 3.7 mmol/L (3.5-5.1); Total Protein 6.2 gm/dl (6.0-8.3)
[2021-08-26 07:13] LABS: BUN Creatinine Ratio 10.5 (10-20)
[2021-08-26] MEDS: MoRPHine SULFATE 2 MG/ML CARP IV PRN ×2 (08:07→13:29)
[2021-08-26] MEDS ORDERED: buPROPion HCl 75 MG TABLET PO SCH (09:00)
[2021-08-26] MEDS ORDERED: ESCITALOPRAM OXALATE 10 MG TAB PO SCH (09:00)
--- NOTE | 2021-08-26 10:00 | Anesthesiology Consultation ---
Date of Service August 26, 2021 Assessment & Plan Chart Review Chart Review: Acceptable Risk for Surgery and Patient NOT seen in Pre Admission Testing Consults Requested none ASA ASA2 Proposed Anesthesia Anesthesia Type: General History Surgery Operation Date: 08/26/21 07:50 Proposed Procedures p Laparoscopic Cholecystectomy Versus Open - Hemant Jacobo DO, FACS Height/Weight Height: 5 ft 5.5 in Weight: 81.5 kg Allergies Allergy/AdvReac Type Severity Reaction Status Date / Time No Known Allergies Allergy Verified 08/25/21 18:14 Medications Home Medications Medication Instructions Recorded Confirmed Last Taken [id number]-[id number]-vnkatcse 250 2 tab PO Q6H PRN 10/26/20 08/25/21 10/25/20 mg-250 mg-65 mg tablet (Excedrin 2 tabs Migraine) escitalopram oxalate 10 mg tablet 10 mg PO DAILY 02/19/21 08/25/21 08/24/21 (Lexapro) norethindrone 1.5 mg-ethinyl 1 tab PO DAILY #84 tab 04/30/21 08/25/21 08/24/21 estradiol 30 mcg(21)/iron 75 mg(7) tablet (Loestrin Fe 1.5/30 (28-Day)) ketoconazole 2 % shampoo 1 applic TOPICAL .COMPLEX #120 ml 05/02/21 08/25/21 Unknown naltrexone 50 mg tablet 25 mg PO DAILY #30 tab 08/13/21 08/25/21 08/24/21 bupropion HCl 75 mg tablet 75 mg PO BID 08/25/21 08/25/21 Unknown Active Medications Generic Name Dose Route Start Last Admin Trade Name Jo PRN Reason Stop Dose Admin Bupropion HCl 75 mg 08/26/21 09:00 08/26/21 08:08 Bupropion Hcl 75 Mg Tablet PO 09/25/21 08:59 75 mg BID JESSICA Administration Escitalopram Oxalate 10 mg 08/26/21 09:00 08/26/21 08:08 Escitalopram Oxalate 10 Mg Tab PO 09/25/21 08:59 10 mg DAILY JESSICA Administration Cefoxitin Sodium 2,000 mg/ 60 mls @ 100 mls/hr 08/25/21 21:15 08/26/21 06:10 Dextrose IV 09/04/21 21:14 Infused Q6H JESSICA Infusion Lactated Ringer's 1,000 mls @ 75 mls/hr 08/25/21 21:15 08/26/21 06:21 Lr IV 09/24/21 21:14 75 mls/hr .[id number] JESSICA Infusion Miscellaneous 1 ea 08/26/21 00:00 08/26/21 09:17 Oral Contraceptive~Order Awaiting Action N/A 09/25/21 00:00 Not Given QS JESSICA Morphine Sulfate 2 mg 08/25/21 21:09 08/26/21 08:07 Morphine Sulfate 2 Mg/Ml Carp IV 09/08/21 21:08 2 mg Q3H PRN Administration Pain NPO Date Last Intake of Fluids: 08/25/21 Time Last Intake of Fluids: 23:59 Date Last Intake of Solids: 08/24/21 Time Last Intake of Solids: 23:00 Past Medical History Medical History Anemia Asthma During . Last time using inhaler was 12/2014 Cholelithiasis Complete placenta previa nos or without hemorrhage, unspecified trimester HX Depression Early intrauterine Fatigue Hx gestational diabetes Required insulin Hx of 04/2018; had D&E Hx of diplopia Now corrected with appropriate corrective lenses. Lactase deficiency [place]-Schlatter's disease Exercise / Class Metabolic Activity II 4-5 Yardwork/Stairs/Walk up hill Past Family History Family History Mother Thyroid condition Asthma Father Allergies Hypertension Grandfather Family history of colon cancer Grandmother Family history of diabetes mellitus Other Family history non-contributory Past Surgical History Surgical History H/O wisdom tooth extraction 2018 History of section History of D&C For retained products of conception after medical Ab 04/2018 History of knee surgery History of tonsillectomy and adenoidectomy age 4 Past Anesthesia History No Hx of Anesthesia Complications and No Family Hx of Anesthesia Complications History of PONV No Hx of PONV and No Hx of Motion Sickness Social History Smoking Status: Former smoker tobacco type: cigarettes Smoking cigarettes per day: .5PPD/ADVISED NPO Hx Alcohol Use: No Hx Substance Use: No substance use type: does not use Physical Exam Vital Signs Last Vital Signs Temp 36.6 C 08/26/21 07:32 Pulse 61 08/26/21 07:32 Resp 16 08/26/21 07:32 BP 109/71 08/26/21 07:32 Pulse Ox 97 08/26/21 07:32 Testing Laboratory Results 08/26/21 06:01 08/26/21 06:01 Urine Color Yellow 08/25/21 19:29 Urine Appearance Clear (Clear) 08/25/21 19:29 Urine pH 6.0 (4.5-7.5) 08/25/21 19:29 Ur Specific [place] 1.023 (1.000-1.030) 08/25/21 19:29 Urine Protein Negative (Negative) 08/25/21 19:29 Urine Glucose (UA) Negative (Negative) 08/25/21 19:29 Urine Ketones Trace (Negative) H 08/25/21 19:29 Urine Nitrite Negative (Negative) 08/25/21 19:29 Ur Leukocyte Esterase Negative (Negative) 08/25/21 19:29 08/25/21 19:36 POC Ur Test NEG
[2021-08-26] MEDS ORDERED: LIDOCAINE 2% 2 ML VIAL/AMP(20MG/ML) INFIL ONE (10:03)
[2021-08-26] MEDS ORDERED: PROPOFOL IV EMULSION 10 MG/ML 20 ML VIAL IV ONE (10:03)
[2021-08-26] MEDS ORDERED: ROCURONIUM BROMIDE 10 MG/ML 5 ML VIAL IV ONE (10:03)
[2021-08-26] MEDS ORDERED: fentaNYL citrate 100 MCG/2 ML VIAL ONE (10:04)
[2021-08-26] MEDS ORDERED: MIDAZOLAM HCL 1 MG/ML 2ML VIAL ONE (10:04)
[2021-08-26] MEDS ORDERED: ACETAMINOPHEN 500 MG TAB PO PRN (10:34)
[2021-08-26] MEDS ORDERED: KETAMINE 50 MG/5 ML SYRINGE ONE (10:35)
[2021-08-26] MEDS ORDERED: GABAPENTIN 300 MG CAP ONE (10:41)
--- NOTE | 2021-08-26 10:44 | Surgery Progress Note ---
Date of Service August 26, 2021 Assessment & Plan (1) Cholelithiasis: Plan: 25 year old female with cholelithiasis and intractable biliary colic. plan for laparoscopic cholecystectomy with possible cholangiogram risks discussed to include but not limited to bleeding, infection, retained stone, bile leak, open surgery, damage to surrounding structures including bile duct, need for future or more extensive surgery, failure to treat symptoms, and risks of anesthesia. possible d/c this afternoon or tomorrow am Admission and Anticipated Discharge Date Admission Date: August 25, 2021 Subjective 25 y/o female admitted with intractable biliary colic. No issues overnight, still some pain. Physical Exam Constitutional: WD/WN, vitals as above Respiratory: normal respiratory effort, lungs clear to auscultation Cardiovascular: RRR, no murmur, no edema Gastrointestinal (Abdomen): Percussion/Palpation: + abdomen tender (RUQ) and abdomen soft; no guarding, abdomen not rigid and no hepatosplenomegaly Results & Data ([facility]) Vital Signs (Past 12 Hours) Vital Signs Temp Pulse Resp BP BP Pulse Ox 08/26/21 10:08 36.7 C 72 20 116/77 98 08/26/21 07:32 36.6 C 61 16 109/71 97 PG Care Time/CCT Total # of Minutes Spent Total Time Spent with Patient: Total time spent is greater than 50% in coordination of care (as documented) at patient's floor/unit and/or counseling patient: Coding Level of Care Code 84564 Subseq Obs Care Lvl 2 Diagnoses Cholelithiasis K80.20
[2021-08-26] MEDS ORDERED: CeleBREX 200 MG CAP PO SCH (10:45)
[2021-08-26] MEDS ORDERED: BUPIVACAINE 0.5 % 5 MG/1 ML MPF 30ML VIAL ONE (10:50)
[2021-08-26] MEDS ORDERED: Nursing to Pharmacy Communication SCH (11:00)
[2021-08-26] MEDS ORDERED: NEOSTIGMINE METHYLSULFATE 1 MG/ML 10ML VIAL ONE (11:51)
--- NOTE | 2021-08-26 11:51 | Operative Report ---
PG Post Operative Report Pre & Post Diagnosis Operation Date: 08/26/21 07:50 Pre-Op Diagnosis: Biliary colic Cholelithiasis Post-Op Diagnosis: Biliary colic Cholelithiasis I identified the patient and participated in the time-out.: Yes Procedure Operation Date: 08/26/21 07:50 Actual Procedures p Laparoscopic Cholecystectomy (Not Applicable) - Hemant Jacboo DO, MARY KAY Surgeon Hemant Jacobo DO, MARY KAY Beef Cattle Specialist Marika Metcalf Estimated Blood Loss 5 Findings Consistent with Post-Op Diagnosis Mild chronic inflammation of the gallbladder. Critical view of safety obtained. Cystic duct and artery doubly clipped and divided. Specimens Gallbladder Anesthesia Type General Complications none Disposition Accompanied Patient To Recovery: No Disposition: Recovery Room Indications 25-year-old female with known cholelithiasis admitted with intractable biliary colic overnight. Plan for laparoscopic cholecystectomy with possible cholangiogram. The risks of the procedure were discussed, all questions were answered, and the patient agreed to proceed with surgery as planned. Description of Procedure The patient was properly identified, consented, and taken to the operating room where she was placed in the supine position. General endotracheal anesthesia was induced. SCDs and a safety belt were placed. Preoperative antibiotics were administered. The patient's abdomen was prepped and draped in the standard sterile fashion. A surgical timeout was performed and all parties were in agreement that this was the correct patient and procedure to be performed and we continued as planned. An incision was made superior and to the left of the umbilicus overlying the rectus muscle and the Veress needle was inserted. Saline drop test confirmed entry into the peritoneum. The abdomen was insufflated with carbon dioxide which the patient tolerated without incident. The abdomen was then entered using the Optiview technique and a 5 mm trocar. The laparoscope was inserted and no damage from initial trocar or Veress needle placement was noted, no gross abnormalities were noted within the 4 quadrants of the abdomen. An 11 mm port was placed in the subxiphoid position and two 5 mm ports were then placed in the right subcostal position. The patient was placed in reverse Trendelenburg position and rotated towards the left. The gallbladder was monitored bleeding chronically inflamed. Omental adhesions were taken down with blunt dissection and cautery. The dome of the gallbladder was retracted towards the left upper quadrant and the infundibulum was retracted toward the right lower quadrant revealing Calot's triangle. Peritoneal attachments were taken down with electrocautery and blunt dissection. The cystic duct and artery were circumferentially dissected. A window of safety was obtained showing the cystic duct entering the gallbladder with no aberrant structures noted. The cystic duct and artery were doubly clipped and divided. The gallbladder was then lifted off the gallbladder fossa with electrocautery. The gallbladder was placed in an Endo Catch bag and removed through the subxiphoid port site. The right upper quadrant was irrigated and hemostasis was found to be good. 5 mm trochars were removed under direct visualization and the abdomen was allowed to collapse. The subxiphoid port site fascia was closed with 0 Vicryl suture utilizing the Sina-Heather closure device prior to removal of the ports. The wound was irrigated, and the skin of all ports was closed with 4-0 Monocryl subcuticular sutures. Dermabond was placed over the wounds. The patient was extubated in the operating room and taken to the PACU where she recovered without apparent incident. All sponge, instrument and needle counts were correct at the conclusion of the procedure. The patient tolerated the procedure well. The physician's assistant housekeeping manager was present and scrubbed for the entirety of the case and was essential in positioning the patient, prepping and draping, retraction and exposure, driving the laparoscope, removal of the gallbladder, closure the incisions, and placement of the dressings. I attest to the content of the Intraoperative Record and any orders documented therein. Any exceptions are noted below.
[2021-08-26] MEDS ORDERED: GLYCOPYRROLATE 0.2 MG/ML VIAL ONE (12:20)
[2021-08-26] MEDS: HYDROmorphone INJ 2 MG/ML SYR/VIAL IV PRN ×4 (12:27→12:42)
[2021-08-26] MEDS ORDERED: HYDROmorphone INJ 2 MG/ML SYR/VIAL ONE (12:27)
[2021-08-26] MEDS ORDERED: MoRPHine SULFATE 4 MG/ML 1 ML CARP\\VIAL IV PRN (13:14)
[2021-08-26] MEDS ORDERED: oxyCODONE/ACETAMINOPHEN 5mg/325mg TAB PO PRN ×2 (13:14)
[2021-08-26] MEDS: LACTATED RINGER'S 1,000 ML IV SCH (13:26)
[2021-08-27] MEDS ORDERED: GABAPENTIN 300 MG CAP PO SCH (09:00)
--- NOTE | 2021-08-27 09:05 | Discharge Summary ---
Date of Service August 26, 2021 Admission HPI Per Admitting Provider This is a 25-year-old female who presented to [facility] emergency department secondary to abdominal pain. Patient notes that her abdominal pain originally began 2 to 3 days ago. She said that she developed nausea and vomiting as well as diarrhea and right upper quadrant abdominal pain was sudden onset. She notes that her pain was unrelated to meals. She denied any fevers, shakes, or chills. She has never experienced abdominal pain like this before. I did question her on postprandial pain over the past several weeks to months which she denied. Because of her symptomatology she initially presented to an outpatient urgent care center and ultimately did undergo an ultrasound of her gallbladder on 08/23/2021. Her abdominal ultrasound was performed at an outpatient [facility] center. The study showed that patient had no gallbladder wall thickening or other evidence of cholecystitis, however she was noted to have a 1.1 cm gallstone. Patient notes that following this ultrasound she was instructed to follow-up with gastroenterology which was scheduled for later this month. The patient had return of her symptoms which prompted a visit to the emergency department this evening. Again the patient noted sudden onset of nausea and vomiting along with diarrhea. She denies any hematemesis, melena, or bright red blood per rectum. She denied any fevers, shakes, or chills. She said that the pain was unrelated to meals and she did not note any provocative factors and noted that the pain merely came on suddenly. She said that the pain was improved with medications that were administered in the emergency department and she also noted some relief after having emesis. It is nowhere the mention that the patient has had abdominal surgery in the form of a approximately 2 years ago. She notes that she has had very little in the way of oral intake today due to her symptoms. Today in the emergency department the patient had labs and imaging which I inde pendently reviewed. A CT scan of the abdomen and pelvis was performed that showed no acute infectious or inflammatory findings noted. Her gallbladder did appear contracted on this study. Labs performed today included a CBC her white blood cell count, hemoglobin, hematocrit, platelet count were all normal. She did have a chemistry profile that showed sodium, potassium, BUN, and creatinine were all normal. LFTs were performed that showed no evidence of elevation of her bilirubin, transaminases, alkaline phosphatase, or lipase. A test was noted be negative. Urinalysis was not indicative of infection. A COVID test was noted to be negative. At the time of my interview the patient was resting comfortably in bed and she was in no distress but did have some residual right upper quadrant pain. Principal Diagnosis biliary colic cholelithiasis Discharge Exam Constitutional awake/alert Gastrointestinal (Abdomen) Inspection/Auscultation: + abdominal surgical incision (c/d/i with dermabond overtop); abdomen not distended Percussion/Palpation: + abdomen tender (some sayda-incisional discomfort) and abdomen soft Discharge Data Allergies Allergy/AdvReac Type Severity Reaction Status Date / Time No Known Allergies Allergy Verified 08/25/21 18:14 Consultations 08/25/21 20:47 ED Decision to Admit Stat Procedures Performed Operation Date: 08/26/21 07:50 Actual Procedures p Laparoscopic Cholecystectomy (Not Applicable) - Hemant Jacobo, , FACS Ordered Studies 08/25/21 18:21 CT abd pelvis IV con only Stat Hospital Course (1) Biliary colic: This is a 25yF who presented to [facility] ED on 08/25/21 with abdominal pain, nausea/vomiting. Workup in the ED showed a WBC of 6, LFTs within normal limits, and a CT a/p concerning for a contracted gallbladder with cholelithiasis. The patient was tender to palpation in the RUQ. She was recently evaluated in an urgent care clinic 2 days prior with similar symptoms and a RUQ US revealed a 1.1cm gallstone without evidence of cholecystitis. Likely patient having biliary colic with cholelithiasis. Patient made NPO with IVF admitted under the surgical service and was booked for the OR. On 08/26/21 the patient went to the OR with Dr. Jacobo for a laparoscopic cholecystectomy. The patient tolerated the procedure well, see operative report for full details. Post operatively the patient's diet was advanced, pain managed on prn meds, and incisions clean /dry/intact. On POD#0 the patient was deemed stable for discharge to home with plans to follow up in clinic within 2 weeks. Total Time Total Time Spent Total Time Spent (In Minutes): 10 Discharge Plan Discharge Items Patient Disposition: Home - Self-Care Reason For Visit: GALLSTONES Discharge Diagnosis: laparoscopic cholecystectomy Condition on Discharge: Good Activity: Per Instructions section Lifting: No more than 10 pounds Bathing Comment: may shower starting 08/27/21; no soaking in tubs/pools Exercise/Sports: Wait until after follow-up appointment Driving/Machine Use: no driving while taking narcotics for pain Non-emergency contact: Surgeon Call non-emergency contact if: you have any medication questions, your symptoms worsen, your pain is not controlled, your pain is concerning for you, you have a fever, your temperature is above 101.5, your wound has increased redness, your wound has increased drainage and your wound pain has increased Follow-up/Referrals: Alessandro Jerez III, CRNP [Primary Care Provider] - Hemant Jacobo DO, FACS [Physician] - (Please call to schedule follow up in clinic within 2 weeks) Diet: Regular Addtl Attending Provider Instructions: You may purchase ibuprofen over the counter if needed for additional pain control. If you do not need the narcotic Percocet, for pain you may take plain Tylenol. Do not take Tylenol and Percocet together as they both contain Acetaminophen and you should not exceed >3grams of Acetaminophen within a 24 hour time period. Pending Studies at Discharge: Yes Studies:: surgical pathology Stand-Alone Forms: My [facility] [employer], Smoking Cessation Medications and DC Order Prescriptions: New oxycodone-acetaminophen [Percocet] 5-325 mg tablet 1 - 2 tab PO .q4-6h PRN (Reason: pain, for initial therapy, max 6 tabs per day) Qty: 12 RF: 0 Continued norethindrone-e.estradiol-iron [Loestrin Fe 1.5/30 (28-Day)] 1.5 mg-30 mcg (21)/75 mg (7) tablet 1 tab PO DAILY Qty: 84 RF: 3 ketoconazole 2 % shampoo 1 applic topical .COMPLEX Qty: 120 RF: 4 naltrexone 50 mg tablet 25 mg PO DAILY Qty: 30 RF: 0 escitalopram oxalate [Lexapro] 10 mg tablet 10 mg PO DAILY RF: 0 Excedrin Migraine 250-250-65 mg Tablet 2 tab PO Q6H PRN (Reason: Pain) RF: 0 bupropion HCl 75 mg Tablet 75 mg PO BID RF: 0 Discharge Orders: Discharge Order (Routine); Ordered 08/26/21 Ordered By: Marika Evangelista/Other Patient Handouts: Having Laparoscopic Cholecystectomy, Taking Opioid Medicines, Managing Post-Op Pain at Home Admission Data Admit Date/Time: 08/25/21 21:09 Attending Provider: Hemant Jacobo Admit Provider: Jacinto Dominguez Primary Care Provider: Alessandro Jerez III Other Providers: Hemant Jacobo Other Interventions: Discharge Summary Assessment (RN) Last Done: 08/26/21 16:35 Coding Level of Care Code D/C DAY MANAGEMENT <30 MINS Diagnoses Biliary colic K80.50
== END 2021-08-26 17:39 | disposition home or self-care (01) ==
LOC: 3E 17:44 → ED 17:44 → 3E 21:43